=== PATIENT | female | born 1970 | race Native Hawaiian/Other Pacific Islander ===

== ENCOUNTER 2017-01-28 15:58 | Inpatient (IN) | payer SELFPAY ==
[2017-01-28 17:00] LABS: Alanine Aminotransferase 22 units/L (7-56); Albumin 4.6 g/dL (3.9-5); Albumin/Globulin Ratio 1.4 %; Alkaline Phosphatase 108 units/L (35-129); Anion Gap 20 mmol/L; BUN/Creatinine Ratio 23.33; Blood Urea Nitrogen 14 mg/dL (7-17); Calcium 9.7 mg/dL (8.4-10.2); Carbon Dioxide 23 mmol/L (22-30); Chloride 102.4 mmol/L (98-107); Glucose 96 mg/dL (65-100); Lipase 35 units/L (13-60); Potassium 4.1 mmol/L (3.6-5.0); Sodium 141 mmol/L (137-145); Total Protein 7.9 g/dL (6.3-8.2)
[2017-01-28 17:03] LABS: Basophils % (Auto) 0.4 % (0.0-1.8); Eosinophils % (Auto) 0.5 % (0.0-4.3); Hematocrit 44.8 % (30.3-42.9); Hemoglobin 15.1 gm/dl (10.1-14.3); Mean Corpuscular HGB Conc 34 % (30-34); Mean Corpuscular Hemoglobin 30 pg (28-32); Mean Corpuscular Volume 90 fl (79-97); Platelet Count 234 K/mm3 (140-440); Red Cell Distribution Width 13.1 % (13.2-15.2); White Blood Count 15.9 K/mm3 (4.5-11.0)
[2017-01-28] MEDS ORDERED: ZOFRAN IV ONE (19:01)
[2017-01-28] MEDS ORDERED: MORPHINE IV ONE (19:01)
--- NOTE | 2017-01-28 19:01 | Emergency Department Report ---
ED Abdominal Pain HPI - General Chief Complaint: Abdominal Pain Stated Complaint: RT LOWER QUADRANT PAIN Time Seen by Provider: 01/28/17 19:00 Source: patient, family Mode of arrival: Ambulatory Limitations: No Limitations - History of Present Illness Initial Comments: Imaging Clerk Patient sent from doctor's office for evaluation due to right lower quadrant abdominal pain. Patient reports abdominal pain 10 out of 10. He denies any nausea or vomiting. She denies any fever or chills. No injury to her abdomen. Urinary burning frequency or urgency. MD Complaint: abdominal pain Onset/Timin -: days(s) Location: RLQ Radiation: none Migration to: no migration Severity: severe Severity scale (0 -10): 10 Quality: stabbing, aching Consistency: constant Improves With: nothing Worsens With: nothing Context: other (possible appendicitis) Associated Symptoms: anorexia. denies: nausea, vomiting, diarrhea, fever, chills, constipation, dysuria, hematemesis, hematochezia, melena, hematuria, syncope Treatments Prior to Arrival: other (none) - Related Data LMP (females 10-50): other (menopausal x 3 years) Home Medications Medication Instructions Recorded Confirmed Last Taken No Known Home Medications [No 01/28/17 01/28/17 Unknown Reported Home Medications] Allergies Allergy/AdvReac Type Severity Reaction Status Date / Time No Known Allergies Allergy Unverified 01/28/17 16:08 ED Review of Systems ROS: Stated complaint: RT LOWER QUADRANT PAIN Other details as noted in HPI Comment: All other systems reviewed and negative Constitutional: denies: chills, fever Respiratory: no symptoms reported Cardiovascular: denies: chest pain, palpitations, edema, syncope Gastrointestinal: abdominal pain. denies: nausea, vomiting, diarrhea, constipation, hematemesis, melena, hematochezia Genitourinary: denies: urgency, dysuria, frequency, hematuria, discharge, dyspareunia Musculoskeletal: denies: back pain, arthralgia, myalgia Skin: denies: rash Neurological: denies: headache, weakness, numbness, paresthesias, confusion, abnormal gait, vertigo ED Past Medical Hx - Past Medical History Previous Medical History?: Yes Additional medical history: Vaginal dleivery x 3 - Surgical History Past Surgical History?: No - Family History Family history: no significant - Social History Smoking Status: Current Every Day Smoker Substance Use Type: Alcohol, Non Opiate Pain - Medications Home Medications: Home Medications Medication Instructions Recorded Confirmed Last Taken Type No Known Home Medications [No 01/28/17 01/28/17 Unknown History Reported Home Medications] ED Physical Exam - General Limitations: Language Barrier General appearance: alert, in no apparent distress - Head Head exam: Present: atraumatic, normocephalic, normal inspection - Eye Eye exam: Present: normal appearance, PERRL, EOMI. Absent: scleral icterus, conjunctival injection, periorbital swelling, periorbital tenderness Pupils: Present: normal accommodation - ENT ENT exam: Present: normal exam, normal orophraynx, mucous membranes moist, TM's normal bilaterally, normal external ear exam - Neck Neck exam: Present: normal inspection, full ROM. Absent: tenderness, meningismus, lymphadenopathy - Respiratory Respiratory exam: Present: normal lung sounds bilaterally. Absent: respiratory distress, chest wall tenderness - Cardiovascular Cardiovascular Exam: Present: regular rate, normal rhythm, normal heart sounds - GI/Abdominal GI/Abdominal exam: Present: soft, tenderness (right lower quadrant), guarding, rebound, normal bowel sounds. Absent: distended, rigid, organomegaly, mass, bruit, pulsatile mass, hernia - Expanded GI/Abdominal Exam Expanded GI/Abdominal exam: Present: psoas sign, obturator sign. Absent: ascites - Extremities Exam Extremities exam: Present: normal inspection, full ROM, normal capillary refill. Absent: tenderness, pedal edema, joint swelling, calf tenderness - Back Exam Back exam: Present: normal inspection, full ROM. Absent: tenderness, CVA tenderness (R), CVA tenderness (L), muscle spasm, paraspinal tenderness, vertebral tenderness, rash noted - Neurological Exam Neurological exam: Present: alert, oriented X3, normal gait, reflexes normal. Absent: motor sensory deficit - Psychiatric Psychiatric exam: Present: normal affect, normal mood - Skin Skin exam: Present: warm, dry, intact, normal color. Absent: rash ED Course Vital Signs 01/28/17 16:08 Temperature 98.3 F Pulse Rate 69 Respiratory 20 Rate Blood Pressure 128/98 O2 Sat by Pulse 98 Oximetry - Reevaluation(s) Reevaluation #1: 01/28/17 20:59 reevaluation of the abdomen, no changes Patient CT scan with IV contrast revealed appendicitis. Given morphine 4 mg IV along with Zofran 4 mg IV prior to CT scan. Reevaluation #2: 01/28/17 21:00 Dr. Johnson paged and awaiting call back. Family updated on results 01/28/17 21:00 Reevaluation #3: 01/28/17 21:17 Patient updated on surgery plan and admission to hospital. IVF and IV antibiotic started. Reevaluation #4: 01/28/17 21:39 Patient on route to the PACU. - Consultations Consultation #1: 01/28/17 21:17 DR Burch to arrange surgery ED Medical Decision Making - Lab Data Result diagrams: 01/28/17 16:19 01/28/17 16:19 Lab Results 01/28/17 01/28/17 01/28/17 Range/Units 16:19 16:19 19:00 WBC 15.9 H (4.5-11.0) K/mm3 RBC 5.00 (3.65-5.03) M/mm3 Hgb 15.1 H (10.1-14.3) gm/dl Hct 44.8 H (30.3-42.9) % MCV 90 (79-97) fl MCH 30 (28-32) pg MCHC 34 (30-34) % RDW 13.1 L (13.2-15.2) % Plt Count 234 (140-440) K/mm3 Lymph % (Auto) 13.3 L (13.4-35.0) % Alfalfa % (Auto) 3.9 (0.0-7.3) % Eos % (Auto) 0.5 (0.0-4.3) % Baso % (Auto) 0.4 (0.0-1.8) % Lymph # 2.1 (1.2-5.4) K/mm3 Alfalfa # 0.6 (0.0-0.8) K/mm3 Eos # 0.1 (0.0-0.4) K/mm3 Baso # 0.1 (0.0-0.1) K/mm3 Seg Neutrophils % 81.9 H (40.0-70.0) % Seg Neutrophils # 13.0 H (1.8-7.7) K/mm3 PT (12.2-14.9) Sec. INR (0.87-1.13) APTT (24.2-36.6) Sec. Sodium 141 (137-145) mmol/L Potassium 4.1 (3.6-5.0) mmol/L Chloride 102.4 (98-107) mmol/L Carbon Dioxide 23 (22-30) mmol/L Anion Gap 20 mmol/L BUN 14 (7-17) mg/dL Creatinine 0.6 L (0.7-1.2) mg/dL Estimated GFR > 60 ml/min BUN/Creatinine Ratio 23.33 % Glucose 96 (65-100) mg/dL Lactic Acid (0.7-2.0) mmol/L Calcium 9.7 (8.4-10.2) mg/dL Total Bilirubin 0.50 (0.1-1.2) mg/dL AST 15 (5-40) units/L ALT 22 (7-56) units/L Alkaline Phosphatase 108 (35-129) units/L Total Protein 7.9 (6.3-8.2) g/dL Albumin 4.6 (3.9-5) g/dL Albumin/Globulin Ratio 1.4 % Lipase 35 (13-60) units/L Urine Color Yellow (Yellow) Urine Turbidity Clear (Clear) Urine pH 5.0 (5.0-7.0) Ur Specific [place] 1.019 (1.003-1.030) Urine Protein <15 mg/dl (Negative) mg/dL Urine Glucose (UA) Neg (Negative) mg/dL Urine Ketones Tr (Negative) mg/dL Urine Blood Mod (Negative) Urine Nitrite Neg (Negative) Urine Bilirubin Neg (Negative) Urine Urobilinogen < 2.0 (<2.0) mg/dL Ur Leukocyte Esterase Neg (Negative) Urine WBC (Auto) < 1.0 (0.0-6.0) /HPF Urine RBC (Auto) 6.0 (0.0-6.0) /HPF U Epithel Cells (Auto) 1.0 (0-13.0) /HPF Urine Mucus Few /HPF 01/28/17 01/28/17 Range/Units 21:08 21:48 WBC (4.5-11.0) K/mm3 RBC (3.65-5.03) M/mm3 Hgb (10.1-14.3) gm/dl Hct (30.3-42.9) % MCV (79-97) fl MCH (28-32) pg MCHC (30-34) % RDW (13.2-15.2) % Plt Count (140-440) K/mm3 Lymph % (Auto) (13.4-35.0) % Alfalfa % (Auto) (0.0-7.3) % Eos % (Auto) (0.0-4.3) % Baso % (Auto) (0.0-1.8) % Lymph # (1.2-5.4) K/mm3 Alfalfa # (0.0-0.8) K/mm3 Eos # (0.0-0.4) K/mm3 Baso # (0.0-0.1) K/mm3 Seg Neutrophils % (40.0-70.0) % Seg Neutrophils # (1.8-7.7) K/mm3 PT 13.4 (12.2-14.9) Sec. INR 1.03 (0.87-1.13) APTT 29.7 (24.2-36.6) Sec. Sodium (137-145) mmol/L Potassium (3.6-5.0) mmol/L Chloride (98-107) mmol/L Carbon Dioxide (22-30) mmol/L Anion Gap mmol/L BUN (7-17) mg/dL Creatinine (0.7-1.2) mg/dL Estimated GFR ml/min BUN/Creatinine Ratio % Glucose (65-100) mg/dL Lactic Acid 0.80 (0.7-2.0) mmol/L Calcium (8.4-10.2) mg/dL Total Bilirubin (0.1-1.2) mg/dL AST (5-40) units/L ALT (7-56) units/L Alkaline Phosphatase (35-129) units/L Total Protein (6.3-8.2) g/dL Albumin (3.9-5) g/dL Albumin/Globulin Ratio % Lipase (13-60) units/L Urine Color (Yellow) Urine Turbidity (Clear) Urine pH (5.0-7.0) Ur Specific [place] (1.003-1.030) Urine Protein (Negative) mg/dL Urine Glucose (UA) (Negative) mg/dL Urine Ketones (Negative) mg/dL Urine Blood (Negative) Urine Nitrite (Negative) Urine Bilirubin (Negative) Urine Urobilinogen (<2.0) mg/dL Ur Leukocyte Esterase (Negative) Urine WBC (Auto) (0.0-6.0) /HPF Urine RBC (Auto) (0.0-6.0) /HPF U Epithel Cells (Auto) (0-13.0) /HPF Urine Mucus /HPF Culture and urine culture pending - Radiology Data Radiology results: report reviewed CT scan of the abdomen and pelvis revealed positive appendicitis - Medical Decision Making Imaging Clerk ED Course: She presents to the emergency room with her family reporting abdominal pain and was sent from her doctor's office for evaluation of appendicitis. CT scan abdomin and pelvis with IV positive findings for appendicitis. White blood cell elevated 15.9 with CBC showing shift to the left. Patient afebrile without any nausea or vomiting. Patient given morphine 4 mg IV and Zofran 8 mg IV in the emergency room. I sp[salud with Dr Johnson who is commissioning editor for surgery. Patient and family up[dated on lab results, CT scan findings and planned to go to surgery. She is understandable and findings and treatment plan. Patient discharged from ED to surgery and to be admitted in hospital after surgery. Blood cultures and urine cultures drawn and sent. A third within normal limits. IV fluid normal saline started and IV Zofran 4.5 g started. I collaborated with Dr Wilks on a second presentation to emergency room, lab results, physical findings and CT scan findings. I also informed her that I spoke with surgeon plans to take the patient to surgery. Critical care attestation.: If time is entered above; I have spent that time in minutes in the direct care of this critically ill patient, excluding procedure time. ED Disposition Clinical Impression: Appendicitis, acute Qualifiers: Acute appendicitis type: unspecified acute appendicitis type Qualified Code(s) : K35.80 - Unspecified acute appendicitis Abdominal pain Qualifiers: Abdominal location: right lower quadrant Qualified Code(s): R10.31 - Right lower quadrant pain Leukocytosis, unspecified Qualifiers: Leukocytosis type: unspecified Qualified Code(s): D72.829 - Elevated white blood cell count, unspecified Disposition: 09 OP ADMIT IP TO THIS HOSP Is pt being admited?: Yes Does the pt Need Aspirin: No Condition: Stable
[2017-01-28 19:33] LABS: Bilirubin,Urine NEG (Negative); Blood,Urine MOD (Negative); Ketones,Urine TR mg/dL (Negative); Leukocyte Esterase,Urine NEG (Negative); Mucus,Urine FEW /HPF; Nitrite,Urine NEG (Negative); Protein,Urine <15 mg/dL mg/dL (Negative); Urobilinogen,Urine < 2.0 mg/dL (<2.0); WBC,Urine < 1.0 /HPF (0.0-6.0)
--- NOTE | 2017-01-28 19:51 | Cat Scan Report ---
FINAL REPORT EXAM: CT ABDOMEN PELVIS W CON HISTORY: abd. pain to r/o appendicitis TECHNIQUE: CT abdomen and pelvis with intravenous contrast PRIORS: None. FINDINGS: No acute abnormality identified in the lung bases. No focal abnormality identified within the liver parenchyma. The spleen demonstrates normal size and attenuation. No pancreatic abnormalities seen. The kidneys demonstrate symmetric contrast enhancement. No evidence of hydronephrosis. The adrenal glands are unremarkable Abdominal aorta is normal in caliber. No pathologically enlarged lymph nodes are identified. No signs of free fluid or free air No evidence of small bowel dilatation. The appendix is distended measuring 0.93 centimeters. There is adjacent mild strandy acute inflammatory appearing change. No focal abscess collection. No free air or free fluid identified. Urinary bladder is unremarkable. IMPRESSION: Findings are most consistent with acute appendicitis. No evidence for rupture at this time.
[2017-01-28] MEDS ORDERED: NACL 0.9% 1000 ML 1,000 ML IV ONE (20:58)
[2017-01-28] MEDS ORDERED: ZOSYN/NS 4.5GM/100ML 4.5 GM/100 ML VIAL IV ONE ×2 (21:18→22:52)
[2017-01-28] MEDS ORDERED: SUBLIMAZE ONE (22:03)
[2017-01-28] MEDS ORDERED: VERSED ONE (22:03)
[2017-01-28] MEDS ORDERED: DIPRIVAN 10 MG/ML IV ONE (22:04)
--- NOTE | 2017-01-28 22:06 | Anesthesia Day of Surgery ---
Anesthesia Day of Surgery - Day of Surgery Patient Examined: Yes Patient H&P Reviewed: Yes Patient is NPO: Yes
--- NOTE | 2017-01-28 22:06 | Anesthesia Consultation ---
Anesthesia Consult and Med Hx Date of service: 01/28/17 - Airway Anesthetic Teeth Evaluation: Partials ROM Head & Neck: Adequate Mental/Hyoid Distance: Adequate Mallampati Class: Class II Intubation Access Assessment: Good - Pulmonary Exam CTA: Yes - Cardiac Exam Cardiac Exam: No Murmur - Pre-Operative Health Status ASA Pre-Surgery Classification: ASA2 Proposed Anesthetic Plan: General - Pulmonary Hx Smoking: Yes
[2017-01-28 22:07] LABS: INR 1.03 (0.87-1.13)
[2017-01-28] MEDS ORDERED: QUELICIN ONE (22:07)
[2017-01-28] MEDS ORDERED: ZEMURON IV ONE (22:07)
[2017-01-28] MEDS ORDERED: XYLOCAINE MPF 2% ONE (22:07)
[2017-01-28 22:08] LABS: Partial Thromboplastin Time 29.7 Sec. (24.2-36.6)
--- NOTE | 2017-01-28 22:27 | Progress Note ---
Assessment and Plan H&P 46 y/o female admitted thru ER RLQ abd pain. +Nausea PMH neg PSH neg NKA No meds FH - breast CA Mom SH 1/2 ppd x 18 yrs occ wine with meals Abd RLQ tenderness with rebound CT - appendicitis imp appendicits for lap appy possible open. risks, indications and compl reviewed consent signed Objective Vital Signs - 12hr 01/28/17 16:08 Temperature 98.3 F Pulse Rate 69 Respiratory 20 Rate Blood Pressure 128/98 O2 Sat by Pulse 98 Oximetry - Labs 01/28/17 16:19 01/28/17 16:19 Diabetes panel 01/28/17 Range/Units 16:19 Sodium 141 (137-145) mmol/L Potassium 4.1 (3.6-5.0) mmol/L Chloride 102.4 (98-107) mmol/L Carbon Dioxide 23 (22-30) mmol/L BUN 14 (7-17) mg/dL Creatinine 0.6 L (0.7-1.2) mg/dL Glucose 96 (65-100) mg/dL Calcium 9.7 (8.4-10.2) mg/dL AST 15 (5-40) units/L ALT 22 (7-56) units/L Alkaline Phosphatase 108 (35-129) units/L Total Protein 7.9 (6.3-8.2) g/dL Albumin 4.6 (3.9-5) g/dL Calcium panel 01/28/17 Range/Units 16:19 Calcium 9.7 (8.4-10.2) mg/dL Albumin 4.6 (3.9-5) g/dL Pituitary panel 01/28/17 Range/Units 16:19 Sodium 141 (137-145) mmol/L Potassium 4.1 (3.6-5.0) mmol/L Chloride 102.4 (98-107) mmol/L Carbon Dioxide 23 (22-30) mmol/L BUN 14 (7-17) mg/dL Creatinine 0.6 L (0.7-1.2) mg/dL Glucose 96 (65-100) mg/dL Calcium 9.7 (8.4-10.2) mg/dL Adrenal panel 01/28/17 Range/Units 16:19 Sodium 141 (137-145) mmol/L Potassium 4.1 (3.6-5.0) mmol/L Chloride 102.4 (98-107) mmol/L Carbon Dioxide 23 (22-30) mmol/L BUN 14 (7-17) mg/dL Creatinine 0.6 L (0.7-1.2) mg/dL Glucose 96 (65-100) mg/dL Calcium 9.7 (8.4-10.2) mg/dL Total Bilirubin 0.50 (0.1-1.2) mg/dL AST 15 (5-40) units/L ALT 22 (7-56) units/L Alkaline Phosphatase 108 (35-129) units/L Total Protein 7.9 (6.3-8.2) g/dL Albumin 4.6 (3.9-5) g/dL
[2017-01-28] MEDS ORDERED: ZOFRAN ONE (22:43)
[2017-01-28] MEDS ORDERED: DECADRON ONE (22:43)
[2017-01-28] MEDS ORDERED: DILAUDID ONE (22:56)
[2017-01-28] MEDS ORDERED: NEOSTIGMINE ONE (23:07)
[2017-01-28] MEDS ORDERED: ROBINUL ONE (23:07)
[2017-01-28] MEDS ORDERED: MARCAINE 0.5% INFILTRATI ONE ×2 (23:22→23:25)
[2017-01-28] MEDS ORDERED: MARCAINE-EPI/PF 0.5%-1:200,000 INFILTRATI ONE ×2 (23:25→23:29)
[2017-01-28] MEDS ORDERED: ZOFRAN IV PRN (23:40)
--- NOTE | 2017-01-28 23:48 | Post Operative Note ---
Pre-op diagnosis: acute appendicitis Post-op diagnosis: same Procedure: lap appendectomy Anesthesia: GETA Surgeon: BRITTANY PAREDES Estimated blood loss: minimal Specimen disposition: to lab Condition: stable Disposition: floor (cults sent)
[2017-01-29] MEDS ORDERED: DILAUDID ONE (00:01)
[2017-01-29] MEDS ORDERED: NACL 0.9% 1000 ML 1,000 ML ONE (00:02)
[2017-01-29] MEDS: DILAUDID IV PRN ×2 (00:10)
[2017-01-29 01:59] LABS: Hematocrit 38.8 % (30.3-42.9); Hemoglobin 13.2 gm/dl (10.1-14.3); Mean Corpuscular HGB Conc 34 % (30-34); Mean Corpuscular Hemoglobin 30 pg (28-32); Mean Corpuscular Volume 90 fl (79-97); Platelet Count 212 K/mm3 (140-440); Red Blood Count 4.33 M/mm3 (3.65-5.03); Red Cell Distribution Width 12.7 % (13.2-15.2); White Blood Count 12.1 K/mm3 (4.5-11.0)
[2017-01-29 02:12] LABS: Alanine Aminotransferase 17 units/L (7-56); Albumin 3.8 g/dL (3.9-5); Albumin/Globulin Ratio 1.5 %; Alkaline Phosphatase 92 units/L (35-129); Anion Gap 16 mmol/L; BUN/Creatinine Ratio 18.57; Blood Urea Nitrogen 13 mg/dL (7-17); Calcium 8.8 mg/dL (8.4-10.2); Carbon Dioxide 23 mmol/L (22-30); Chloride 104.9 mmol/L (98-107); Glucose 119 mg/dL (65-100); Potassium 4.3 mmol/L (3.6-5.0); Sodium 140 mmol/L (137-145); Total Protein 6.4 g/dL (6.3-8.2)
[2017-01-29 02:37] LABS: Blastocytes % (Manual) 0 %; Diff Status Complete; Platelet Estimate Consistent w Auto; RBC Morphology Normal
[2017-01-29] MEDS: D5/0.45NS 1,000 ML IV SCH (04:21)
[2017-01-29] MEDS: MORPHINE IV PRN ×4 (04:35→20:10)
[2017-01-29] MEDS: FLAGYL 500 MG/100 ML 500 MG/100 ML BAG IV SCH ×3 (06:40→22:48)
[2017-01-29 06:42] LABS: Basophils % (Auto) 0.3 % (0.0-1.8); Hematocrit 37.5 % (30.3-42.9); Hemoglobin 12.9 gm/dl (10.1-14.3); Mean Corpuscular HGB Conc 35 % (30-34); Mean Corpuscular Hemoglobin 31 pg (28-32); Mean Corpuscular Volume 89 fl (79-97); Platelet Count 211 K/mm3 (140-440); Red Blood Count 4.22 M/mm3 (3.65-5.03); Red Cell Distribution Width 12.7 % (13.2-15.2); White Blood Count 9.9 K/mm3 (4.5-11.0)
[2017-01-29 06:54] LABS: Alanine Aminotransferase 17 units/L (7-56); Albumin 3.8 g/dL (3.9-5); Albumin/Globulin Ratio 1.4 %; Alkaline Phosphatase 89 units/L (35-129); Anion Gap 16 mmol/L; Blood Urea Nitrogen 15 mg/dL (7-17); Calcium 8.9 mg/dL (8.4-10.2); Carbon Dioxide 22 mmol/L (22-30); Chloride 105.1 mmol/L (98-107); Glucose 164 mg/dL (65-100); Potassium 4.4 mmol/L (3.6-5.0); Sodium 139 mmol/L (137-145); Total Protein 6.6 g/dL (6.3-8.2)
--- NOTE | 2017-01-29 07:36 | Admit Criteria Form ---
Admission Criteria Documentation: ABDOMINAL PAIN Clinical Indications for Admission to Inpatient Care (Place 'X' for any and all applicable criteria): Admission is indicated for ANY ONE of the following(1)(2)(3)(4)(5): [X ]I. Inpatient admission required rather than observation care (Also use Abdominal Pain: Observation Care, as appropriate) because of ANY ONE of the following: [ ]a) Severe pain requiring acute inpatient management [X ]b) Identification of etiology/finding that requires inpatient care (eg, aortic dissection, free air) [ ]c) Absent bowel sounds with complete ileus(6) [ ]d) Suspected toxic megacolon [ ]e) Severe electrolyte abnormalities requiring inpatient care [ ]f) High fever or infection requiring inpatient admission as indicated by ANY ONE of following(7)(8): [ ] i) Appropriate outpatient or observational care antimicrobial treatment unavailable, not effective, or not feasible [ ] ii) Documented bacteremia [ ] iii) Temperature > 104.9 degrees F (oral) [ ] iv) T >103.1 F (oral) or < 96.8 F(rectal) that does not respond to all emergency treatment measures [ ]g) Signs of intestinal obstruction [B] [ ]h) Hemodynamic instability [ ]i) IV fluid to replace significant ongoing losses (greater than 3 L/m2 per day) (12)(13) [ ]j) Percutaneous or open drainage (eg, abscess, biliary tract ) procedures [ ]k) Parenteral nutrition regimen that must be implemented on inpatient basis [ ]l) Other condition,treatment or monitoring requiring inpatient admission. [ ]II. Peritoneal signs present [ ]III. Surgery needed that cannot be performed on an ambulatory basis. [ ]IV. Evaluation requires patient to not eat or drink for extended period ( eg, more than 24 hours). [ ]V. Contraindications and/or Inappropriate clinical situations for Observational Care in patients with abdominal pain, when ANY ONE of the following is required: [ ]a) Thorough evaluation is required to prevent catastrophic events due to delays in diagnosing (e.g.Mesenteric ischemia) 1,3 [ ]b) Patient with severe pathology or with chronic symptoms unlikely to improve in the ED stay (3) [ ]. General contraindications and/or Inappropriate clinical situations for Observational Care in patients with abdominal pain, when ANY ONE of the following is required: [ ]a) Prediction of prolongation of LOS based on ANY ONE of the following may be considered as a contraindication for observational care 2, 3, 4, 5, 6, 7, 8, 9, 10, 11 [ ]i) Age > 65 yrs. [ ]ii) Patient arriving by ambulance [ ]iii) Patient with high acuity [ ]iv) Patient requiring vital sign monitoring [ ]v) Patient on IV medication [ ]b) Systolic blood pressures 180mmHg 3,12 [ ]c) Patient with altered mental status including delirium and other alteration of consciousness, (3) [ ]d) Patient whose discharge disposition will be to a intermediate home or rehabilitation home should not be managed in Emergency Department Observation Unit. CMS rule requires 3 days hospital stay before such placement.3,13 [ ]e) Patient with failure to thrive due to broad array of etiologies 3,16,17 [ ]f) Inability to ambulate 3,14 Extended stay beyond goal length of stay may be needed for(2)(3): [ ]a) Persistent abdominal pain with suspected intra-abdominal process [ ]b) Diagnosed condition requiring continued stay (e.g., pancreatitis, complicated diverticulitis) [ ]c) Surgery (e.g., colectomy) The original [employer] [employer] [facility] content created by [employer] has been revised. The portions of the content which have been revised are identified through the use of italic text or in bold, and [facility] [employer] has neither reviewed nor approved the modified material.All other unmodified content is copyright [employer] [facility]. Please see references footnoted in the original [employer] [facility] edition 2016 Admission Criteria Met: Yes
[2017-01-29] MEDS: LEVAQUIN 500MG/100ML 500 MG/100 ML BAG IV SCH (09:34)
[2017-01-29] MEDS ORDERED: D5NS 1,000 ML IV SCH (12:05)
--- NOTE | 2017-01-29 12:11 | Progress Note ---
Assessment and Plan POD # 1 Pt c/o dizziness. low BP noted but good color, pulse 55 and h/h stable from pre-op. Pt states has not taken a lot of narcotics Abd soft. - BS labs as below low BP secondary to (sepsis, bleeding, IV narcotics) ? repeat h/h now change IVF to D5NS @ 150/hr for next 24 hrs keep npo continue IV antibiotics will monitor closely Selected Entries 01/29/17 08:00 Temperature 98.3 F Pulse Rate [ 55 L Brachial] Respiratory 18 Rate Blood Pressure 98/63 [Left Arm] Laboratory Tests 01/29/17 01/29/17 01/29/17 01:27 05:58 05:58 WBC 12.1 H 9.9 Hgb 13.2 12.9 Hct 38.8 D 37.5 Sodium 139 Potassium 4.4 Chloride 105.1 BUN 15 Creatinine 0.6 L Objective Vital Signs - 12hr 01/29/17 01/29/17 01/29/17 00:15 00:30 00:45 Temperature 97.3 F L Pulse Rate 60 54 L 54 L Pulse Rate [ Brachial] Respiratory 16 14 14 Rate Blood Pressure 99/58 100/52 93/52 Blood Pressure [Left Arm] O2 Sat by Pulse 98 94 94 Oximetry 01/29/17 01/29/17 01/29/17 02:00 02:58 04:35 Temperature 98.5 F Pulse Rate Pulse Rate [ 52 L Brachial] Respiratory 20 20 20 Rate Blood Pressure Blood Pressure 88/55 [Left Arm] O2 Sat by Pulse 96 96 Oximetry 01/29/17 01/29/17 01/29/17 05:05 05:06 08:00 Temperature 98.3 F 98.3 F Pulse Rate Pulse Rate [ 48 L 55 L Brachial] Respiratory 18 18 18 Rate Blood Pressure Blood Pressure 95/58 98/63 [Left Arm] O2 Sat by Pulse 96 98 Oximetry - Labs 01/29/17 05:58 01/29/17 05:58 Diabetes panel 01/29/17 01/29/17 Range/Units 01:27 05:58 Sodium 140 139 (137-145) mmol/L Potassium 4.3 4.4 (3.6-5.0) mmol/L Chloride 104.9 105.1 (98-107) mmol/L Carbon Dioxide 23 22 (22-30) mmol/L BUN 13 15 (7-17) mg/dL Creatinine 0.7 0.6 L (0.7-1.2) mg/dL Glucose 119 H 164 H (65-100) mg/dL Calcium 8.8 8.9 (8.4-10.2) mg/dL AST 13 13 (5-40) units/L ALT 17 17 (7-56) units/L Alkaline Phosphatase 92 89 (35-129) units/L Total Protein 6.4 6.6 (6.3-8.2) g/dL Albumin 3.8 L 3.8 L (3.9-5) g/dL Calcium panel 01/29/17 01/29/17 Range/Units 01:27 05:58 Calcium 8.8 8.9 (8.4-10.2) mg/dL Albumin 3.8 L 3.8 L (3.9-5) g/dL Pituitary panel 01/29/17 01/29/17 Range/Units 01:27 05:58 Sodium 140 139 (137-145) mmol/L Potassium 4.3 4.4 (3.6-5.0) mmol/L Chloride 104.9 105.1 (98-107) mmol/L Carbon Dioxide 23 22 (22-30) mmol/L BUN 13 15 (7-17) mg/dL Creatinine 0.7 0.6 L (0.7-1.2) mg/dL Glucose 119 H 164 H (65-100) mg/dL Calcium 8.8 8.9 (8.4-10.2) mg/dL Adrenal panel 01/29/17 01/29/17 Range/Units 01:27 05:58 Sodium 140 139 (137-145) mmol/L Potassium 4.3 4.4 (3.6-5.0) mmol/L Chloride 104.9 105.1 (98-107) mmol/L Carbon Dioxide 23 22 (22-30) mmol/L BUN 13 15 (7-17) mg/dL Creatinine 0.7 0.6 L (0.7-1.2) mg/dL Glucose 119 H 164 H (65-100) mg/dL Calcium 8.8 8.9 (8.4-10.2) mg/dL Total Bilirubin 0.60 0.60 (0.1-1.2) mg/dL AST 13 13 (5-40) units/L ALT 17 17 (7-56) units/L Alkaline Phosphatase 92 89 (35-129) units/L Total Protein 6.4 6.6 (6.3-8.2) g/dL Albumin 3.8 L 3.8 L (3.9-5) g/dL
[2017-01-29 14:44] LABS: Basophils % (Auto) 0.4 % (0.0-1.8); Hemoglobin 12.9 gm/dl (10.1-14.3); Mean Corpuscular HGB Conc 34 % (30-34); Mean Corpuscular Hemoglobin 31 pg (28-32); Mean Corpuscular Volume 90 fl (79-97); Platelet Count 210 K/mm3 (140-440); Red Blood Count 4.22 M/mm3 (3.65-5.03); Red Cell Distribution Width 12.6 % (13.2-15.2); White Blood Count 11.3 K/mm3 (4.5-11.0)
[2017-01-30] MEDS: MORPHINE IV PRN ×2 (02:48→14:14)
[2017-01-30] MEDS: FLAGYL 500 MG/100 ML 500 MG/100 ML BAG IV SCH ×3 (06:11→23:37)
[2017-01-30 09:20] LABS: Basophils % (Auto) 0.7 % (0.0-1.8); Eosinophils % (Auto) 0.6 % (0.0-4.3); Hemoglobin 13.2 gm/dl (10.1-14.3); Mean Corpuscular HGB Conc 34 % (30-34); Mean Corpuscular Hemoglobin 31 pg (28-32); Mean Corpuscular Volume 91 fl (79-97); Platelet Count 199 K/mm3 (140-440); Red Blood Count 4.29 M/mm3 (3.65-5.03); Red Cell Distribution Width 12.9 % (13.2-15.2); White Blood Count 9.8 K/mm3 (4.5-11.0)
[2017-01-30] MEDS: LEVAQUIN 500MG/100ML 500 MG/100 ML BAG IV SCH (10:06)
--- NOTE | 2017-01-30 11:41 | Progress Note ---
Assessment and Plan POD # 2 Pt feeling bettter today. Ambulated some down halls. headache and dizziness resolved. minimal flatus Abd soft. hypoactive BS h/h stable. wbc 9.8 stable attempt sips of cl liq change IVF back to D51/2 NS Selected Entries 01/30/17 08:00 Temperature 98.9 F Pulse Rate [ 68 Apical] Respiratory 16 Rate Blood Pressure 107/68 [Left Arm] Laboratory Tests 01/30/17 09:00 WBC 9.8 Hgb 13.2 Hct 39.0 Objective Vital Signs - 12hr 01/30/17 01/30/17 05:00 08:00 Temperature 98.0 F 98.9 F Pulse Rate [ 54 L 68 Apical] Pulse Rate [ 54 L 68 Brachial] Respiratory 18 16 Rate Blood Pressure 106/64 107/68 [Left Arm] O2 Sat by Pulse 92 Oximetry - Labs 01/30/17 09:00 01/29/17 05:58
[2017-01-30] MEDS: D5/0.45NS 1,000 ML IV SCH (11:45)
[2017-01-30] MEDS: TYLENOL PO PRN ×2 (19:16→23:35)
[2017-01-31] MEDS: TYLENOL PO PRN (03:58)
[2017-01-31] MEDS: D5/0.45NS 1,000 ML IV SCH ×2 (04:00→14:17)
[2017-01-31] MEDS: FLAGYL 500 MG/100 ML 500 MG/100 ML BAG IV SCH ×2 (05:39→14:16)
[2017-01-31 08:06] VITALS: BP 110/69
[2017-01-31] MEDS: LEVAQUIN 500MG/100ML 500 MG/100 ML BAG IV SCH (09:28)
[2017-01-31] MEDS ORDERED: NORCO 5/325 PO PRN (09:30)
--- NOTE | 2017-01-31 17:45 | Progress Note ---
Assessment and Plan POD #3 Pt feeling well. silvia full liq diet without compl. eager to go home. Abd soft, non tender. +BS surgically stable d/c today reg diet at home in am rto wed Selected Entries 01/31/17 16:00 Temperature 98.4 F Pulse Rate [ 61 Apical] Respiratory 18 Rate Blood Pressure 110/69 [Left Arm] Objective Vital Signs - 12hr 01/31/17 01/31/17 08:00 16:00 Temperature 98.4 F 98.4 F Pulse Rate [ 61 61 Apical] Pulse Rate [ 61 61 Brachial] Respiratory 18 18 Rate Blood Pressure 110/69 110/69 [Left Arm] O2 Sat by Pulse 96 96 Oximetry - Labs 01/30/17 09:00 01/29/17 05:58
--- NOTE | 2017-01-31 17:47 | Discharge Summary ---
Providers - Providers Date of Admission: 01/28/17 23:50 Attending physician: BRITTANY PAREDES Primary care physician: [employer] Hospitalization Condition: Good Disposition: DC-01 TO HOME OR SELFCARE Core Measure Documentation - Palliative Care Palliative Care/ Comfort Measures: Not Applicable - Core Measures Any of the following diagnoses?: none Exam - Constitutional Vitals: Temp Pulse Resp BP Pulse Ox 98.4 F 61 18 110/69 96 01/31/17 16:00 01/31/17 16:00 01/31/17 16:00 01/31/17 16:00 01/31/17 16:00 Plan Activity: other (d/c today on full liq. advance to reg diet at home in am as silvia. keep dressings dry x 48hrs. no lifting over 5 lbs x 3 wks. rto this wed) Weight Bearing Status: Non-Weight Bearing Diet: other Wound: keep clean and dry Follow up with: BRITTANY PAREDES MD [Staff Physician] - 02/03/17
== END 2017-01-31 18:40 | disposition home or self-care (01) | DRG 343 ==
LOC: ED 15:58 → OR 23:41 → 2B-SURG 23:50
PROVIDERS: ADMIT Surgery; ATTEND Surgery
PROC: 0DTJ4ZZ Resection of Appendix, Percutaneous Endoscopic Approach (ICD-10-PCS; principal; 2017-01-28)
DX: K35.80 Unspecified acute appendicitis (principal); F17.210 Nicotine dependence, cigarettes, uncomplicated
CPT/HCPCS: 36415; 74177; 80053; 81001; 82140; 83690; 85007; 85025; 85610; 85730; 87040; 87075; 87086; 87116; 88304; 96374; 96375; 96376; 99406; J0330; J1100; J1170; J1956; J2250; J2270; J2405; J2543; J2704; J2710; J3010; J7030; J7042; Q9967